=== PATIENT | female | born 1970 | race Caucasian/White ===

== ENCOUNTER 2020-05-28 22:57 | Emergency (ER) | payer MEDICAID, OTHER ==
[~2020-05-28] VITALS: Ht 152.4 cm; Wt 90.0 kg
[~2020-05-28 22:57] MED LIST: Aspirin PO; METH10TA2 PO; NITR0.4T24 SL; NITR100C62 PO; Nitrofurantoin Monohyd/M-Cryst PO; PHEN-318 PO
--- NOTE | 2020-05-28 23:27 | PHYS DOC ---
Past History Past Medical History: Anxiety, Ovarian Cyst, Pneumonia Past Surgical History: Cholecystectomy, Hysterectomy Smoking: Cigarettes Alcohol Use: Rarely Drug Use: None, Methadone General Adult HPI: HPI: ".. I hurting really bad.. in my gut....I ate the same food everyone else did... .. [place] I am the only one that got sick.." " I live in [place].. but I was up here visiting family..." " I just have completed two series of antibiotis for a UTI... Patient is a 49 year old female who presents with above hx and complaints generalized abdomen pain with some localization on right flank and lower abdomen. Patient denies any intake of bad food but pain increased after intake of cornbread, fried chicken, green beans and cheese cake,. No other individuals eating the same food got sick. Recent travel from [facility]. No history of trauma. No history of immunosuppression. Has had previous hysterectomy, cholecystectomy and tubal ligation. Patient did have complications with her gallbladder removal in which she had a prolonged recuperation. Secondary to neck bowel resulting in repeat laparoscopic surgery with multiple drains. Patient denies any specific ill contacts. Patient has had recent episode of urinary tract infection that has been treated with 2 courses of antibiotics. Patient reports she did have a normal stool today. Patient is passing gas. No tarry stools Review of Systems: Review of Systems: Constitutional: Denies fever or chills Eyes: Denies change in visual acuity HENT: Denies nasal congestion or sore throat Respiratory: Denies cough or shortness of breath Cardiovascular: Denies chest pain or edema GI: Complains of right abdomen and flank abdominal pain, nausea, vomiting,. Bloody stools or diarrhea : Denies dysuria Musculoskeletal: Denies back pain or joint pain Integument: Denies rash Neurologic: Denies headache, focal weakness or sensory changes Endocrine: Denies polyuria or polydipsia Lymphatic: Denies swollen glands Psychiatric: Denies depression or anxiety Heart Score: HEART Score for Chest Pain: HEART Score for Chest Pain Response (Comments) Value History Slighlty/Non-Suspicious 0 ECG Nonspecific Repolarizatio 1 Age >45 - < 65 1 Risk Factors 1 or 2 Risk Factors 1 Troponin < Normal Limit 0 Total 3 Risk Factors: Risk Factors: DM, Current or recent (<one month) smoker, HTN, HLP, family history of CAD, obesity. Risk Scores: Score 0 - 3: 2.5% MACE over next 6 weeks - Discharge Home Score 4 - 6: 20.3% MACE over next 6 weeks - Admit for Clinical Observation Score 7 - 10: 72.7% MACE over next 6 weeks - Early Invasive Strategies Family History: Family History: Noncontributory to presentation Current Medications: Current Meds: See nursing for home meds Allergies: Allergies: Allergies Coded Allergies Type Severity Reaction Last Updated Verified Penicillins Adverse Reaction Severe 03/05/15 Yes Physical Exam: PE: Constitutional: In moderately acute distress, non-toxic appearance. [] HENT: Normocephalic, atraumatic, bilateral external ears normal, oropharynx moist, no oral exudates, nose normal. [] Eyes: PERRLA, EOMI, conjunctiva normal, no discharge. [] Neck: Normal range of motion, no tenderness, supple, no stridor. [] Cardiovascular: Tachycardia heart rate regular rhythm, no murmur [] Lungs & Thorax: Bilateral breath sounds equal at apex with scattered wheezes . Abdomen ;: Distended, multiple surgery scars, obese,, no masses, no pulsatile masses. Patient declines rectal exam at this time. Rebound to right flank, mid and lower abdomen Skin: Warm, dry, no erythema, no rash. [] Back: No tenderness, right flank CVA tenderness. [] Extremities: No tenderness, no cyanosis, no clubbing, ROM intact, no edema. [] Neurologic: Alert and oriented X 3, normal motor function, normal sensory function, no focal deficits noted. [] Psychologic: Affect normal, judgement normal, mood normal. [] EKG: EKG: My interpretation EKG shows sinus rhythm at 96 bpm. No findings acute STEMI of contralateral changes. [] Radiology/Procedures: Radiology/Procedures: [][address] [address] IMAGING REPORT Signed PATIENT: CASSIA JACK LACCOUNT: [id number] : 1970 LOCATION: ER AGE: 49 SEX: F EXAM STATUS: REG ER ORD. PHYSICIAN: LEIGHA HARRIS MD REASON: Abdomen pain, nausea today. Hx: Cholecystectomy, hysterectomy, UT PROCEDURE: CT ABD PELV W/ORAL&IV CONTRAST CT ABD PELV W/ORAL IV CONTRAST History: Reason: Abdomen pain, nausea today. Hx: Cholecystectomy, hysterectomy, UT / Spl. Instructions: / History: Comparison: 02/27/2012. Technique: After administration of intravenous contrast, helical CT of the abdomen and pelvis was performed from the lung bases through the ischial tuberosities. Coronal and sagittal reconstructions were obtained. 75 mL of Isovue-370 were used. One or more of the following dose reduction techniques were utilized: Automated exposure control (AEC), Adjustment of mA and/or kV according to patient size, Use of iterative reconstruction technique such as ASiR, CT scan done according to ALARA and image gently/image wisely Abdomen Findings: The visualized lung bases are clear. The liver, pancreas, spleen, and bilateral adrenal glands are normal. Cholecystectomy. Symmetric renal enhancement. Mild right hydroureteronephrosis. Asymmetric right perinephric stranding. No opaque urinary calculi. The visualized loops of small bowel are normal. The visualized loops of large bowel are normal. There is no evidence of bowel obstruction. Normal appendix. There is no free fluid. There is no mesenteric or retroperitoneal adenopathy. The abdominal aorta is normal in caliber. Pelvis Findings: Urinary bladder is partially distended. Mild circumferential bladder wall thickening. Hysterectomy. Incompletely characterized left ovarian cyst measuring 5.5 cm. There is no pelvic or inguinal adenopathy. There is no acute bony abnormality. IMPRESSION: 1. Mild right hydroureteronephrosis. No opaque urinary calculi are seen. Asymmetric right perinephric inflammatory stranding. 2. Superficial bladder wall thickening, which could relate to underdistention versus cystitis. Consider urinalysis. 3. Incompletely characterized left ovarian cyst measuring 5.5 cm. Electronically signed by: Ambrosio Armas MD (05/29/2020 2:09 AM) [facility] DICTATED AND SIGNED BY: AMBROSIO ARMAS MD DATE: 05/29/20208 CC: LEIGHA HARRIS MD; PCP,NO ~ IMAGING REPORT Signed PATIENT: CASSIA JACK LACCOUNT: [id number] : 1970 LOCATION: ER AGE: 49 SEX: F EXAM STATUS: REG ER ORD. PHYSICIAN: LEIGHA HARRIS MD REASON: Chest and abdomen pain with nausea PROCEDURE: ABDOMEN SUPINE & UPRIGHT CHEST PA LATERAL, ABDOMEN SUPINE UPRIGHT INDICATION: Reason: Chest and abdomen pain with nausea / Spl. Instructions: / History: . COMPARISON STUDY: None. FINDINGS: Lungs: Normal lung volume. No pulmonary mass or consolidation. Calcified pulmonary granulomas. The tracheobronchial tree and hilar structures are normal. Pleura: No pleural effusion or pneumothorax. Heart and Mediastinum: The cardiomediastinal silhouette is normal. The great vessels of the thorax are normal. Abdomen: Nonobstructive bowel gas pattern. No free air. Cholecystectomy clips. Bones and Soft Tissues: Degenerative changes of the spine. IMPRESSION: 1. Nonobstructive bowel gas pattern. 2. No focal airspace disease. Electronically signed by: Ambrosio Armas MD (05/29/2020 1:30 AM) [facility] DICTATED AND SIGNED BY: AMBROSIO ARMAS MD DATE: 05/29/20129 CC: LEIGHA HARRIS MD; PCP,NO ~ Course & Med Decision Making: Course & Med Decision Making Pertinent Labs and Imaging studies reviewed. (See chart for details) Recommended patient be admitted for IV antibiotics since she is already had outpatient treatment failure due to 2 courses of antibiotics and still has a UTI with more white cells then can be counted. CT did show findings of a right hydronephrosis and other findings consistent with pyelonephritis. Patient exhibits UCAR capacity. Patient appears to understand risk of her demands to be discharged. Will discharge patient on Levaquin 500 mg a day for 10 days. Warned patient that pyelonephritis can result and sepsis and permanent damage to her right kidney. Patient advised she could return at any time. Advised patient may need re-referral to a hospital that has urology available due to the findings of hydronephrosis on the CT. Begged patient reconsider her decision for refusing admission or transfer. Patient return at any time. [] Impression: 1. Abdomen pain 2. Urinary tract infection-recent completed 2 courses of antibiotics 3. Right hydronephrosis 4. Right pyelonephritis 5. Creatinine 1.2. 6. Diabetes glucose 120 Advised patient must follow-up. Return if any concerns. Push fluids. Place times he drinks. Take Tylenol for pain. Return if any concerns. Dragon Disclaimer: Dragon Disclaimer: This electronic medical record was generated, in whole or in part, using a voice recognition dictation system. Departure Departure: Disposition: 01 HOME/RESIDENCE PRIOR TO ADM Condition: STABLE Referrals: PCP,NO (PCP) Scripts Fluconazole (DIFLUCAN) 100 Mg Tablet 100 MG PO DAILY for post antibioics for 3 Days, #3 TAB Prov: LEIGHA HARRIS MD 05/29/20 Levofloxacin (LEVAQUIN) 500 Mg Tablet 1 TAB PO DAILY for pyleoneprhitis for 10 Days, #10 TAB 0 Refills Prov: LEIGHA HARRIS MD 05/29/20 Justification of Admission: Justification of Admission: Justification of Admission Dx: N/A Dragon Disclaimer This chart was dictated in whole or in part using Voice Recognition software in a busy, high-work load, and often noisy Emergency Department environment. It may contain unintended and wholly unrecognized errors or omissions. Dragon Disclaimer This chart was dictated in whole or in part using Voice Recognition software in a busy, high-work load, and often noisy Emergency Department environment. It may contain unintended and wholly unrecognized errors or omissions. LEIGHA HARRIS MD May 28, 2020 23:27
[2020-05-28] MEDS ORDERED: ONDANSETRON PF 4 MG/2 ML VIAL. IVP ONE (23:45)
[2020-05-28] MEDS ORDERED: MORPHINE SULFATE 10 MG/ML SYRINGE. SQ ONE (23:45)
[2020-05-28] MEDS ORDERED: MAGNESIUM HYDROXIDE 2,400 MG/30 ML ORAL.SUSP. PO ONE (23:45)
[2020-05-28] MEDS ORDERED: KETOROLAC 30 MG/ML VIAL. IVP ONE (23:45)
[2020-05-28] MEDS ORDERED: CONTRAST GIVEN MC PRN (23:45)
[2020-05-28] MEDS ORDERED: IV RINGERS SOLUTION,LACTATED 1,000 ML IV SCH (23:45)
[2020-05-28] MEDS ORDERED: FAMOTIDINE 20 MG/2 ML VIAL IVP ONE (23:45)
--- NOTE | 2020-05-28 23:48 | EKG ---
[address] [address] Test Date: 2020-05-28 Test Time: 23:44:55 Pat Name: CASSIA JACK Department: Room: Gender: F Rebar Bender: : 1970 Requested By: LEIGHA HARRIS Order Number: [id number] Reading MD: Measurements Intervals [place] Rate: 96 P: 39 NM: 164 QRS: 7 QRSD: 78 T: 34 QT: 350 QTc: 449 Interpretive Statements SINUS RHYTHM NO SPECIFIC ECG ABNORMALITIES RI6.02 Compared to ECG 01/23/2015 05:47:07 Poor R-wave progression no longer present
[2020-05-28 23:54] LABS: BARBITURATES NEG (NEG); BENZODIAZEPINES NEG (NEG); BILIRUBIN,URINE NEG (NEG); CANNABINOIDS NEG (NEG); CLARITY,URINE CLOUDY; COCAINE NEG (NEG); COLOR,URINE YELLOW; GLUCOSE,URINE NEG (NEG); METHADONE NEG (NEG); OPIATES NEG (NEG); PHENCYCLIDINE NEG (NEG)
[2020-05-28 23:55] LABS: BACTERIA,URINE MANY /HPF (0-FEW); NITRITE,URINE POS (NEG); RBC,URINE 0 /HPF (0-2); SQUAMOUS EPITHELIAL CELL,UR FEW /LPF; UROBILINOGEN,URINE 0.2 mg/dL (0.2 mg/dL); WBC,URINE >40 /HPF (0-4)
[2020-05-28 23:56] LABS: AMPHETAMINE/METHAMPHETAMINE NEG (NEG)
[2020-05-29] MEDS ORDERED: IOHEXOL 240 MG/ML 50ML VIAL. PO ONE (00:30)
[2020-05-29] MEDS ORDERED: IOHEXOL 300 MG/ML 75 ML VIAL. IV ONE (00:30)
[2020-05-29 01:03] LABS: BASO # 0.1 x10^3/uL (0.0-0.2); BASO % 1 % (0-3); EOS # 0.4 x10^3/uL (0.0-0.7); EOS % 4 % (0-3); HEMATOCRIT 42.8 % (36.0-47.0); HEMOGLOBIN 14.2 g/dL (12.0-15.5); LYMPH # 2.3 x10^3/uL (1.0-4.8); LYMPH % 24 % (24-48); MEAN CORPUSCULAR HEMOGLOBIN 29 pg (25-35); MEAN CORPUSCULAR HGB CONC 33 g/dL (31-37); MEAN CORPUSCULAR VOLUME 86 fL (79-100); MONO # 0.6 x10^3/uL (0.0-1.1); MONO % 6 % (0-9); NEUT # 6.4 x10^3uL (1.8-7.7); NEUT % 66 % (31-73); PLATELET COUNT 211 x10^3/uL (140-400); RED BLOOD COUNT 4.96 x10^6/uL (3.50-5.40); RED CELL DISTRIBUTION WIDTH 13.4 % (11.5-14.5); WHITE BLOOD COUNT 9.7 x10^3/uL (4.0-11.0)
[2020-05-29 01:12] LABS: CALCIUM 8.4 mg/dL (8.5-10.1); CREATININE 1.2 mg/dL (0.6-1.0); GFR 48.2; POTASSIUM 3.8 mmol/L (3.5-5.1)
[2020-05-29 01:19] LABS: ALBUMIN 3.4 g/dL (3.4-5.0); DIRECT BILIRUBIN 0.1 mg/dL (0.0-0.2); TOTAL BILIRUBIN 0.2 mg/dL (0.2-1.0)
--- NOTE | 2020-05-29 01:33 | RAD ---
CHEST PA LATERAL, ABDOMEN SUPINE UPRIGHT INDICATION: Reason: Chest and abdomen pain with nausea / Spl. Instructions: / History: . COMPARISON STUDY: None. FINDINGS: Lungs: Normal lung volume. No pulmonary mass or consolidation. Calcified pulmonary granulomas. The tracheobronchial tree and hilar structures are normal. Pleura: No pleural effusion or pneumothorax. Heart and Mediastinum: The cardiomediastinal silhouette is normal. The great vessels of the thorax are normal. Abdomen: Nonobstructive bowel gas pattern. No free air. Cholecystectomy clips. Bones and Soft Tissues: Degenerative changes of the spine. IMPRESSION: 1. Nonobstructive bowel gas pattern. 2. No focal airspace disease. Electronically signed by: Dash Armas MD (05/29/2020 1:30 AM) [facility]
--- NOTE | 2020-05-29 02:12 | RAD ---
CT ABD PELV W/ORAL IV CONTRAST History: Reason: Abdomen pain, nausea today. Hx: Cholecystectomy, hysterectomy, UT / Spl. Instructions: / History: Comparison: 02/27/2012. Technique: After administration of intravenous contrast, helical CT of the abdomen and pelvis was performed from the lung bases through the ischial tuberosities. Coronal and sagittal reconstructions were obtained. 75 mL of Isovue-370 were used. One or more of the following dose reduction techniques were utilized: Automated exposure control (AEC), Adjustment of mA and/or kV according to patient size, Use of iterative reconstruction technique such as ASiR, CT scan done according to ALARA and image gently/image wisely Abdomen Findings: The visualized lung bases are clear. The liver, pancreas, spleen, and bilateral adrenal glands are normal. Cholecystectomy. Symmetric renal enhancement. Mild right hydroureteronephrosis. Asymmetric right perinephric stranding. No opaque urinary calculi. The visualized loops of small bowel are normal. The visualized loops of large bowel are normal. There is no evidence of bowel obstruction. Normal appendix. There is no free fluid. There is no mesenteric or retroperitoneal adenopathy. The abdominal aorta is normal in caliber. Pelvis Findings: Urinary bladder is partially distended. Mild circumferential bladder wall thickening. Hysterectomy. Incompletely characterized left ovarian cyst measuring 5.5 cm. There is no pelvic or inguinal adenopathy. There is no acute bony abnormality. IMPRESSION: 1. Mild right hydroureteronephrosis. No opaque urinary calculi are seen. Asymmetric right perinephric inflammatory stranding. 2. Superficial bladder wall thickening, which could relate to underdistention versus cystitis. Consider urinalysis. 3. Incompletely characterized left ovarian cyst measuring 5.5 cm. Electronically signed by: Dash Armas MD (05/29/2020 2:09 AM) [facility]
[2020-05-29] MEDS ORDERED: levoFLOXacin 500 MG TABLET PO ONE (02:30)
[2020-05-29] MEDS ORDERED: LEVO500T59 PO (02:30)
[2020-05-29] MEDS ORDERED: FLUC100T7 PO (02:51)
[2020-05-29] MEDS ORDERED: cefTRIAXone IM 1 GM VIAL IM ONE (03:00)
[2020-05-29] MEDS ORDERED: KETOROLAC 30 MG/ML VIAL. IVP ONE (03:00)
[2020-05-29 03:45] VITALS: BP 108/56
== END 2020-05-29 03:42 | disposition home or self-care (01) ==
LOC: ER 22:57
DX: N13.30 Unspecified hydronephrosis (principal); N12 Tubulo-interstitial nephritis, not specified as acute or chronic; N39.0 Urinary tract infection, site not specified; R79.89 Other specified abnormal findings of blood chemistry; E11.9 Type 2 diabetes mellitus without complications; R11.2 Nausea with vomiting, unspecified; F17.210 Nicotine dependence, cigarettes, uncomplicated; Z90.710 Acquired absence of both cervix and uterus; Z90.49 Acquired absence of other specified parts of digestive tract; Z88.0 Allergy status to penicillin
CPT/HCPCS: 36415; 71046; 74019; 74177; 80048; 80076; 80307; 81001; 82150; 82550; 83690; 84484; 85025; 85610; 85730; 87086; 93005; 96361; 96372; 96374; 96375; 96376; 99285; J0696; J1885; J2270; J2405; J3490; J7120; Q9966; Q9967

== ENCOUNTER 2021-12-09 08:54 | Emergency (ER) | payer MEDICAID ==
[~2021-12-09] VITALS: Ht 152.4 cm; Wt 102.3 kg
[~2021-12-09 08:54] MED LIST changes: +FLUC100T7 PO; +LEVO500T59 PO; +METH-570 PO; -METH10TA2 PO
[2021-12-09 10:15] LABS: BACTERIA,URINE MOD /HPF (0-FEW); BILIRUBIN,URINE NEG (NEG); CLARITY,URINE CLOUDY; COLOR,URINE YELLOW; GLUCOSE,URINE NEG (NEG); NITRITE,URINE NEG (NEG); SQUAMOUS EPITHELIAL CELL,UR FEW /LPF; UROBILINOGEN,URINE 0.2 mg/dL (0.2 mg/dL); WBC,URINE >40 /HPF (0-4); YEAST,URINE PRESENT /HPF
[2021-12-09 10:53] VITALS: BP 118/63
[2021-12-09] MEDS ORDERED: CEPH500T PO (11:20)
[2021-12-09] MEDS ORDERED: FLUC200T PO (11:20)
[2021-12-09] MEDS ORDERED: PHEN-318 PO (11:20)
--- NOTE | 2021-12-09 11:20 | PHYS DOC ---
Past History Past Medical History: Anxiety, Ovarian Cyst, Pneumonia Additional Past Medical Histor: carpal tunnel and trigger fingers germ[place]; nerve pain in the neck Past Surgical History: Cholecystectomy, , Hysterectomy, Other Additional Past Surgical Histo: bladder sling, germain carpal tunnel, trigger finger, rt lung opened and draine Smoking: Cigarettes Alcohol Use: None Drug Use: None, Methadone General Adult EDM: Chief Complaint: PAIN ON URINATION HPI: HPI: Patient is a [age] year old [sex] who presents with [] Review of Systems: Review of Systems: Constitutional: Denies fever or chills Eyes: Denies change in visual acuity HENT: Denies nasal congestion or sore throat Respiratory: Denies cough or shortness of breath Cardiovascular: Denies chest pain or edema GI: Denies abdominal pain, nausea, vomiting, bloody stools or diarrhea : Denies dysuria Musculoskeletal: Denies back pain or joint pain Integument: Denies rash Neurologic: Denies headache, focal weakness or sensory changes Endocrine: Denies polyuria or polydipsia Lymphatic: Denies swollen glands Psychiatric: Denies depression or anxiety Allergies: Allergies: Allergies Coded Allergies Type Severity Reaction Last Updated Verified Penicillins Adverse Reaction Severe 12/09/21 Yes Physical Exam: PE: Constitutional: Well developed, well nourished, no acute distress, non-toxic appearance. [] HENT: Normocephalic, atraumatic, bilateral external ears normal, oropharynx moist, no oral exudates, nose normal. [] Eyes: PERRLA, EOMI, conjunctiva normal, no discharge. [] Neck: Normal range of motion, no tenderness, supple, no stridor. [] Cardiovascular:Heart rate regular rhythm, no murmur [] Lungs & Thorax: Bilateral breath sounds clear to auscultation [] Abdomen: Bowel sounds normal, soft, no tenderness, no masses, no pulsatile masses. [] Skin: Warm, dry, no erythema, no rash. [] Back: No tenderness, no CVA tenderness. [] Extremities: No tenderness, no cyanosis, no clubbing, ROM intact, no edema. [] Neurologic: Alert and oriented X 3, normal motor function, normal sensory function, no focal deficits noted. [] Psychologic: Affect normal, judgement normal, mood normal. [] Current Patient Data: Labs: Laboratory Tests Test 12/09/21 09:20 Urine Collection Type Unknown Urine Color Yellow Urine Clarity Cloudy Urine pH 6.5 Urine Specific Mallory 1.025 Urine Protein Neg (NEG-TRACE) Urine Glucose (UA) Neg mg/dL (NEG) Urine Ketones (Stick) Neg mg/dL (NEG) Urine Blood Small (NEG) Urine Nitrite Neg (NEG) Urine Bilirubin Neg (NEG) Urine Urobilinogen Dipstick 0.2 mg/dL (0.2 mg/dL) Urine Leukocyte Esterase Small (NEG) Urine RBC 6-10 /HPF (0-2) Urine WBC >40 /HPF (0-4) Urine Squamous Epithelial Cells Few /LPF Urine Bacteria Mod /HPF (0-FEW) Urine Yeast Present /HPF Vital Signs: Vital Signs Date Time Temp Pulse Resp B/P (MAP) Pulse Ox O2 Delivery O2 Flow Rate FiO2 12/09/21 10:53 83 18 118/63 (81) 96 Room Air 12/09/21 09:16 98.5 EKG: EKG: [] Radiology/Procedures: Radiology/Procedures: [] Heart Score: Risk Factors: Risk Factors: DM, Current or recent (<one month) smoker, HTN, HLP, family history of CAD, obesity. Risk Scores: Score 0 - 3: 2.5% MACE over next 6 weeks - Discharge Home Score 4 - 6: 20.3% MACE over next 6 weeks - Admit for Clinical Observation Score 7 - 10: 72.7% MACE over next 6 weeks - Early Invasive Strategies Course & Med Decision Making: Course & Med Decision Making Pertinent Labs and Imaging studies reviewed. (See chart for details) [] Divina Disclaimer: Divina Disclaimer: This electronic medical record was generated, in whole or in part, using a voice recognition dictation system. Departure Departure: Impression: Primary Impression: UTI (urinary tract infection) Qualified Codes: N30.01 - Acute cystitis with hematuria Additional Impression: Yeast cystitis Disposition: HOME / SELF CARE / HOMELESS Condition: STABLE Referrals: PCP,NO (PCP) Patient Instructions: Isela Infection, Adult, Urinary Tract Infection, [id number] Additional Instructions: Increase fluid hydration take [id number] ibuprofen and or Tylenol for pain or discomfort. Please take prescriptions to completion. Scripts Fluconazole (DIFLUCAN) 200 Mg Tablet 1 TAB PO DAILY for yeast infection, #2 TAB Take on day 1 of starting prescription antibiotics and then take the day after completion of your antibiotic therapy. Prov: LAURA MONTAÑO DO 12/09/21 Phenazopyridine Hcl (PYRIDIUM) 200 Mg Tablet 200 MG PO TID for urinary tract infection for 2 Days, #6 TAB Prov: LAURA MONTAÑO DO 12/09/21 Cephalexin (CEPHALEXIN) 500 Mg Tablet 1 TAB PO TID for wound infection for 7 Days, #21 TAB Prov: LAURA MONTAÑO DO 12/09/21 LAURA MONTAÑO DO Dec 09, 2021 11:20
[2021-12-09] MEDS ORDERED: PHENAZOPYRIDINE 200 MG TABLET. PO ONE (11:30)
[2021-12-09] MEDS ORDERED: CEPHALEXIN 250 MG CAPSULE PO ONE (11:30)
[2021-12-09] MEDS ORDERED: PHENAZOPYRIDINE 200 MG TABLET. ONE (11:31)
[2021-12-09] MEDS ORDERED: CEPHALEXIN 250 MG CAPSULE ONE (11:31)
== END 2021-12-09 11:36 | disposition home or self-care (01) ==
LOC: ER 09:11
DX: B37.41 Candidal cystitis and urethritis (principal); F17.210 Nicotine dependence, cigarettes, uncomplicated; Z90.49 Acquired absence of other specified parts of digestive tract; Z98.890 Other specified postprocedural states; Z90.710 Acquired absence of both cervix and uterus; Z88.0 Allergy status to penicillin
CPT/HCPCS: 36415; 81001; 87077; 87086; 87491; 87591; 99283